=== PATIENT | female | born 1940 | race Caucasian/White ===

== ENCOUNTER 2023-04-14 19:33 | Emergency (ER) | payer OTHER, SELFPAY ==
[2023-04-14 19:37] VITALS: BP 145/64; BMI 22.5
[2023-04-14 19:38] VITALS: BP 145/64
[2023-04-14] MEDS: ZOFRAN 4 MG IV (19:57)
[2023-04-14 20:00] VITALS: BP 150/56
[2023-04-14] MEDS: TORADOL 15 MG IV (21:06)
[2023-04-14 21:08] VITALS: BP 149/59
[2023-04-14 22:00] VITALS: BP 131/54
[2023-04-14] MEDS: PERCOCET 5/325 1 TABLET PO (22:51)
--- NOTE | 2023-04-14 23:09 | ED.MUSCINJ ---
HPI-Injury
General
Chief Complaint: Fall
Source: patient
Exam Limitations: none
Time Seen by Provider: 04/14/23 19:37
Nursing documentation reviewed up to this point in time: agreed with
Travel History
Have you had any contact with someone who has COVID-19?: No
Do you have any symptoms of coronavirus? Fever > 100 degrees, chills, cough, shortness of breath, sore throat, loss of taste or smell, muscle aches, or headache?: No
History of Present Illness-Injury
Is this injury a work related problem?: No
Is pt an associate of [facility]?: No
Initial Injury comments:
Patient states she hit step with foot while climbing stairs. Fell forward, hit face on furniture. No LOC. Complains of pain to her right shoulder. Brought to ED by family for eval.
Past History
Past History
ED Past Medical History: HTN and Hypercholesterolemia
ED Past Surgical History: None
Social History
Tobacco: Non-smoker
Alcohol: None
Personal:
Living: with family
Employment: Employed
Review of Systems
Review of Systems
Allergies reviewed?: Yes
All Other Systems: ROS reviewed and negative except as documented in HPI and ROS
Constitutional: Reports no symptoms
EENT: Reports no symptoms
Respiratory: Reports no symptoms
Cardiac: Reports no symptoms
ABD/GI: Reports no symptoms
: Reports no symptoms
Musculoskeletal: Reports joint pain (pain to right shoudler)
Skin: Reports no symptoms
Neurological: Reports no symptoms
Psychiatric: Reports no symptoms
Musculoskeletal Injury Exam
Musculoskeletal Injury Exam
Right Shoulder:
Pain with Movement?: Moderate
Tender to palpation?: Moderate
Soft tissue swelling?: Mild
External deformity and angulation?: None
Joint effusion?: None
Contusion?: Moderate
Hematoma-local bleeding into tissue?: None
Strain- Sprain- Tear (Connective tissue injury)?: Moderate
Crepitus with movement?: No
Joint instability?: No
Malalignment/deformity?: No
Range of motion: Limited
Distal skin color and temperature: normal-warm & good color
Capillary Refill: normal
Normal distal neurovascular exam?: Yes
Peripheral Pulses: radial (right): 3+
Phy Exam
General Physical Exam
General Presentation: well appearing and no apparent distress
General age: appears stated age
General Skin: warm and dry
General Habitus: normal
General Mental: alert
Neurological Exam
Neurological Exam: alert, oriented x3, CN II-XII intact, no motor deficits, no sensory deficits and speech normal
Musculoskeletal Exam
Musculoskeletal Exam: neuro vasc intact and other (Limited ROM to right shoulder. No pain to elbow or wrist. )
Skin Exam
Skin Exam: normal color, warm/dry and no rash
Psychiatric Exam
Psychiatric Exam: normal mood/affect
Injury Course
Orders/Labs/Results
Orders:
Orders
04/14/23 19:53
Ondansetron Injectable [Zofran] 4 mg .ROUTE .STK-MED ONE
04/14/23 19:57
Ondansetron Injectable [Zofran] 4 mg IV NOW STA
04/14/23 19:58
CT Head W/o Iv Contrast Urgent
Comment:
Reason For Exam: fall
Shoulder, Right, Trauma [CR Shoulder, Trauma - Right] Urgent
Comment:
Reason For Exam: fall
04/14/23 21:00
Shoulder Immobilizer Right- Tx ONCE
04/14/23 21:03
Ketorolac [Toradol] 15 mg IV NOW STA
04/14/23 22:48
Oxycodone/Acetaminophen [Percocet 5/325] 1 tablet PO NOW STA
*Radiology
Radiology exam reviewed: preliminary read by ED provider (fx humeral head) and radiology read reviewed (CT: neg for intracranial hemorrhage)
*Pulse Oximetry
Patient hypoxic: no
*Critical Care Note
Total Time (30-74mins, 75-104mins- exclusive of procedures): Not Applicable
ED Attending Note
-
Portions of this chart may have been created with voice recognition software.� Occasional wrong word or��sound alike� substitutions may have occurred due to the inherent limitations of voice recognition software.
Discharge Plan
Departure
Patient Disposition: Home (Routine Discharge)
Date of Disposition: 04/14/23
Time of Disposition: 22:37
Patient with high blood pressure during this ER visit?: No
Condition: Good
Covid-19: Not Applicable
Discharge Problem:
Head injury, Fracture of proximal end of left humerus
Instructions: Head Injury in Adults (DC), Preventing falls in adults, Using Cold for Pain, Upper Arm Fracture ED
Prescriptions:
New
oxycodone-acetaminophen [Percocet] 5-325 mg tablet
1 tab PO Q4HPRN PRN (Reason: pain) Qty: 14 0RF
No Action
lisinopril 5 MG tablet
2.5 mg PO DAILY
cholecalciferol (vitamin D3) [Vitamin D3] 1,000 UNIT capsule
1,000 unit PO DAILY
aspirin 81 MG tablet,chewable
81 mg PO QPM
cholestyramine (with sugar) 1 PKT powder in packet
1 pkt PO PRN PRN (Reason: Diarrhea)
atorvastatin 40 MG tablet
40 mg PO QPM Qty: 30 3RF
acetaminophen 325 MG tablet
650 mg PO Q4HPRN PRN (Reason: mild pain,headache,temp >101F ) 0RF
metoprolol succinate 50 MG tablet extended release 24 hr
50 mg PO DAILY Qty: 30 3RF
oxycodone 5 MG tablet
5 mg PO Q6HPRN PRN (Reason: mod-severe pain ) Qty: 28 0RF
furosemide [Lasix] 40 MG tablet
40 mg PO DAILY Qty: 3 1RF
potassium chloride [Klor-Con M20] 20 MEQ tablet,ER particles/crystals
20 meq PO DAILY Qty: 3 1RF
Referrals:
Tika Cosme NP [Family Provider] -
Patricio Dang MD [Active] - Call in 1-3 days for appt
Interventions
Interventions:
*Risk Screen - Suicide Last Done: 04/14/23 19:37
*General Assessment Last Done: 04/14/23 19:37
*Neglect/Abuse Screening Last Done: 04/14/23 19:37
ED- Fall Risk Assessment Last Done: 04/14/23 19:58
*ED COVID-19 Vaccine History Last Done: 04/14/23 19:37
ED-Musculoskeletal Assessment Last Done: 04/14/23 19:58
ED- Neurological Assessment Last Done: 04/14/23 19:58
ED-Skin Assessment Last Done: 04/14/23 19:58
== END 2023-04-14 23:50 | disposition home or self-care (01) ==
LOC: EMR 19:33
PROVIDERS: EMERGENCY PHYSICIAN Emergency Medicine; FAMILY PHYSICIAN Internal Medicine
DX: S09.90XA Unspecified injury of head, initial encounter (principal); S42.202A Unspecified fracture of upper end of left humerus, initial encounter for closed fracture; W19.XXXA Unspecified fall, initial encounter; I10 Essential (primary) hypertension; E78.00 Pure hypercholesterolemia, unspecified
CPT/HCPCS: 99284; 96374; 96375; 70450; 73030

== ENCOUNTER → 2023-04-17 07:36 | Outpatient (REF) | payer OTHER, SELFPAY | LOC: RAD 07:36 | PROVIDERS: ATTENDING PHYSICIAN Orthopaedic Surgery Hand Surgery; FAMILY PHYSICIAN Internal Medicine | DX: S42.201A Unspecified fracture of upper end of right humerus, initial encounter for closed fracture (principal) | CPT/HCPCS: 73200 ==

== ENCOUNTER 2023-04-18 06:11 | Day surgery (SDC) | payer OTHER, SELFPAY ==
[2023-04-17 08:45] LABS: Hematocrit 37.8 % (37.0-47.0); Hemoglobin 13.1 g/dL (12.0-16.0); Mean Corp Hgb Conc. 34.7 g/dL (33.0-37.0); Mean Corpuscular Hgb 31.8 pg (27.0-31.0); Mean Corpuscular Volume 91.7 fL (81.0-99.0); Mean Platelet Volume 12.3 fL (7.4-10.4); Platelet Count 226 10^3/uL (130-400); Red Blood Cell Count 4.12 10^6/uL (4.20-5.40); Red Cell Dist. Width 13.2 % (11.5-14.5)
[2023-04-17 09:15] LABS: ALT (SGPT) 25 U/L (0-35); AST (SGOT) 33 U/L (14-36); Albumin 3.6 g/dl (3.5-5.0); Alkaline Phosphatase 74 U/L (38-126); Blood Urea Nitrogen 15 mg/dl (7-17); Calcium 8.9 mg/dl (8.4-10.2); Carbon Dioxide 27 mmol/L (22-30); Chloride 99 mmol/L (98-107); Glucose 103 mg/dl (70-99); Potassium 4.8 mmol/L (3.5-5.1); Sodium 131 mmol/L (135-145); Total Bilirubin 2.1 mg/dl (0.2-1.3); Total Protein 6.3 g/dl (6.3-8.2); eGFR > 60.00
[2023-04-17 11:52] LABS: Glycohemoglobin (HgbA1c) 6.2 % (4.0-5.6)
[2023-04-17 12:26] VITALS: BMI 23.4
[2023-04-18] VITALS (12 sets, daily range): BP systolic 136–164; BP diastolic 57–77; BMI 23.4
[2023-04-18] MEDS: CELEBREX 200 MG PO (11:17)
[2023-04-18] MEDS: TYLENOL 1000 MG PO (11:18)
[2023-04-18] MEDS: NORMOSOL-R 1000 IV (11:26)
[2023-04-18] MEDS: MORPHINE SULFATE 1 MG IV ×4 (14:36→15:10)
[2023-04-18] MEDS: ANCEF 5 IV (17:11)
== END 2023-04-18 17:40 | disposition home or self-care (01) ==
LOC: SDS 06:11
PROVIDERS: ATTENDING PHYSICIAN Orthopaedic Surgery Hand Surgery; FAMILY PHYSICIAN Internal Medicine
DX: S42.201A Unspecified fracture of upper end of right humerus, initial encounter for closed fracture (principal); W01.0XXA Fall on same level from slipping, tripping and stumbling without subsequent striking against object, initial encounter
CPT/HCPCS: 23472; 36415; 73020; 80053; 83036; 85027; 87070; C1713; C1776

== ENCOUNTER → 2023-09-03 11:11 | Outpatient (REF) | payer OTHER, SELFPAY | LOC: WDC 11:11 | PROVIDERS: ATTENDING PHYSICIAN Internal Medicine | DX: Z12.31 Encounter for screening mammogram for malignant neoplasm of breast (principal) | CPT/HCPCS: 77063; 77067 ==

== ENCOUNTER → 2024-07-16 12:51 | Outpatient (REF) | payer OTHER, SELFPAY | LOC: RCS 12:51 | PROVIDERS: ATTENDING PHYSICIAN Internal Medicine Cardiovascular Disease; FAMILY PHYSICIAN Internal Medicine | DX: I10 Essential (primary) hypertension (principal); I70.0 Atherosclerosis of aorta; I77.810 Thoracic aortic ectasia; I35.1 Nonrheumatic aortic (valve) insufficiency | CPT/HCPCS: 93306 ==

== ENCOUNTER → 2024-09-03 13:34 | Outpatient (REF) | payer OTHER, SELFPAY | LOC: WDC 13:34 | PROVIDERS: ATTENDING PHYSICIAN Internal Medicine | DX: Z12.31 Encounter for screening mammogram for malignant neoplasm of breast (principal) | CPT/HCPCS: 77063; 77067 ==